=== PATIENT | male | born 1980 | race African-American/Black ===

== ENCOUNTER 2022-04-22 11:30 | Emergency (ER) | payer OTHER ==
[~2022-04-22] VITALS: Ht 182.9 cm; Wt 140.0 kg
[2022-04-22] MEDS ORDERED: IBUPROFEN 400 MG TABLET PO ONE (12:45)
[2022-04-22] MEDS ORDERED: ACETAMINOPHEN 500 MG TABLET PO ONE (12:45)
[2022-04-22 13:31] VITALS: BP 160/80
== END 2022-04-22 14:05 ==
LOC: EMS 11:30
DX: M25.512 Pain in left shoulder (principal); Z87.39 Personal history of other diseases of the musculoskeletal system and connective tissue
CPT/HCPCS: 99283

== ENCOUNTER 2022-05-25 13:09 | Emergency (ER) | payer OTHER ==
[~2022-05-25] VITALS: Ht 185.4 cm; Wt 159.0 kg
[~2022-05-25 13:09] MED LIST: ACET-2247 PO; ALBU8HFA IH; AMLO-258 PO; BENZ-70 PO; FLUC200T85 PO; HEPA500018 SQ; MAGN-169 PO
[2022-05-25 14:13] VITALS: BP 138/76
[2022-05-25] MEDS ORDERED: ACETAMINOPHEN 325 MG TABLET PO PRN (14:15)
[2022-05-25] MEDS ORDERED: ONDANSETRON HCL 4 MG/2 ML VIAL IVP PRN (14:15)
== END 2022-05-25 14:28 ==
LOC: EMS 13:11
DX: U07.1 COVID-19 (principal); Z91.040 Latex allergy status; Z79.899 Other long term (current) drug therapy
CPT/HCPCS: 99283; Z7502

== ENCOUNTER 2022-05-25 16:34 | Inpatient (IN) | payer OTHER ==
[~2022-05-25] VITALS: Ht 185.4 cm; Wt 159.0 kg
[2022-05-25] MEDS ORDERED: ACETAMINOPHEN 325 MG TABLET PO PRN (17:00)
[2022-05-25] MEDS ORDERED: ONDANSETRON HCL 4 MG/2 ML VIAL IVP PRN ×2 (17:00→21:00)
[2022-05-25 17:15] LABS: COVID AG,FIA SOURCE NASAL SWAB
[2022-05-25] MEDS ORDERED: IPRATROPIUM BROMIDE 0.5 MG/2.5 ML NEB SOLUTION NEB PRN (21:00)
[2022-05-25] MEDS ORDERED: ALBUTEROL SULFATE 2.5 MG/0.5 ML NEB SOLUTION NEB PRN (21:00)
[2022-05-25] MEDS ORDERED: BISACODYL 10 MG RECTAL RECTAL SUPPOSITORY PR PRN (21:00)
[2022-05-25] MEDS: DOCUSATE SODIUM 100 MG CAPSULE PO SCH (21:00)
[2022-05-25] MEDS ORDERED: ALBUTEROL SULFATE HFA 90 MCG/PUFF 8 GM INHALER IH PRN (21:00)
[2022-05-25] MEDS ORDERED: MAGNESIUM HYDROXIDE SUSPENSION 30 ML UDCUP PO PRN ×2 (21:00)
[2022-05-25] MEDS ORDERED: HEPARIN SODIUM,PORCINE 5,000 UNITS/ML VIAL SQ SCH (21:00)
[2022-05-25 21:06] VITALS: BP 144/68
[2022-05-25] MEDS: ACETAMINOPHEN 325 MG TABLET PO PRN (22:14)
[2022-05-25] MEDS: ZOLPIDEM TARTRATE 5 MG TABLET PO PRN (22:14)
[2022-05-25] MEDS: BENZONATATE 100 MG CAPSULE PO SCH (22:14)
[2022-05-26 05:19] VITALS: BP 129/83
[2022-05-26 07:35] VITALS: BP 154/84
[2022-05-26] MEDS: HEPARIN SODIUM,PORCINE 5,000 UNITS/ML VIAL SQ SCH ×3 (08:38→16:26)
[2022-05-26] MEDS: PANTOPRAZOLE SODIUM 40 MG/VIAL IVP SCH ×2 (08:38→09:00)
[2022-05-26] MEDS: BENZONATATE 100 MG CAPSULE PO SCH ×3 (08:38→21:10)
[2022-05-26] MEDS: FLUCONAZOLE 200 MG TABLET PO SCH (08:39)
[2022-05-26] MEDS: DOCUSATE SODIUM 100 MG CAPSULE PO SCH ×2 (08:39→21:00)
[2022-05-26] MEDS: AmLODIPine BESYLATE 10 MG TABLET PO SCH (08:39)
[2022-05-26] MEDS: ACETAMINOPHEN 325 MG TABLET PO PRN (14:46)
[2022-05-26 15:34] VITALS: BP_SYST 140; BP_SYST 82; BP_DIAS 82
[2022-05-26 20:14] VITALS: BP 151/85
[2022-05-27] MEDS: HEPARIN SODIUM,PORCINE 5,000 UNITS/ML VIAL SQ SCH ×2 (00:02→08:06)
[2022-05-27] MEDS: ZOLPIDEM TARTRATE 5 MG TABLET PO PRN (00:02)
[2022-05-27 05:05] VITALS: BP 134/79
[2022-05-27] MEDS ORDERED: PANTOPRAZOLE SODIUM 40 MG DR TABLET PO SCH (06:30)
[2022-05-27] MEDS: BENZONATATE 100 MG CAPSULE PO SCH (08:05)
[2022-05-27] MEDS: FLUCONAZOLE 200 MG TABLET PO SCH (08:06)
[2022-05-27] MEDS: AmLODIPine BESYLATE 10 MG TABLET PO SCH (08:06)
[2022-05-27 08:10] VITALS: BP 119/65
[2022-05-27] MEDS: DOCUSATE SODIUM 100 MG CAPSULE PO SCH (08:10)
[2022-05-27 15:36] VITALS: BP 128/84
== END 2022-05-27 15:45 | DRG 948 ==
LOC: EMS 16:34 → 6S 17:05
PROVIDERS: ADMIT Hospitalist; ATTEND Hospitalist
DX: R53.81 Other malaise (principal); Z68.42 Body mass index [BMI] 45.0-49.9, adult; E66.01 Morbid (severe) obesity due to excess calories; I10 Essential (primary) hypertension; Z79.899 Other long term (current) drug therapy; Z91.013 Allergy to seafood
CPT/HCPCS: 94640; 97162; 99285; C9113; J1644

== ENCOUNTER 2022-09-23 11:11 | Emergency (ER) | payer OTHER ==
[~2022-09-23] VITALS: Ht 188 cm; Wt 113.6 kg
[~2022-09-23 11:11] MED LIST changes: -ACET-2247 PO; -ALBU8HFA IH; -HEPA500018 SQ; -MAGN-169 PO
[2022-09-23] MEDS ORDERED: LISI-893 PO (12:40)
[2022-09-23] MEDS ORDERED: FLUT1BLS11 IH (12:40)
[2022-09-23] MEDS ORDERED: PERTUSS(ACELL),DIPH,TET VAC/PF 0.5 ML SYRINGE IM. ONE (13:15)
[2022-09-23 16:21] VITALS: BP 133/79
== END 2022-09-23 16:45 | disposition home or self-care (01) ==
LOC: EMS 11:11
DX: S01.01XA Laceration without foreign body of scalp, initial encounter (principal); M25.572 Pain in left ankle and joints of left foot; M79.641 Pain in right hand; Y08.89XA Assault by other specified means, initial encounter; Y93.89 Activity, other specified; Y92.89 Other specified places as the place of occurrence of the external cause; Y99.8 Other external cause status
CPT/HCPCS: 90471; 90715; 99284